=== PATIENT | male | born 1965 | race Caucasian/White ===

== ENCOUNTER 2025-02-02 09:13 | Emergency (ER) | payer MEDICAID, SELFPAY ==
--- OUTSIDE RECORDS SUMMARY | 2023-10-17 04:01 | XMS_ITS | Continuity of Care Document ---
Author Organization [facility] Address [address] [address] [place] [address] Phone Care Team Providers Care Shear Tender Name Role Phone Blaine Lombardo CRNA Unavailable Unavailab le Allergies, Adverse Reactions, Alerts Substance Reaction Status Criticality No Known Allergies Active No Inform ation Medications Medication Instructions Dosage Effective Dates (start - stop) Status Comments lisinopril 5 mg tablet take 1 tablet by oral route every day 5 MG - Active simvastatin 10 mg tablet take 1 tablet by oral route every day in the evening 10 MG - Active One A Day Men Complete 240 mcg-25 mcg-300 mcg tablet - Active tadalafil 2.5 mg tablet take 1 tablet by oral route every month 2.5 MG - Active Procedures Procedure Date Colonoscopy Flex; W/remov Les- 24 Level Iv-surg Path Gross/micro 24 Advance Directives Directive Yes / No Effective Date File Name No Information Encounters Encounter Description Practice Location Reason(s) For Visit Diagnoses Date Provider Providers Copied on Encounter [facility], [address] [address], [place], [id number], [place] tel:[phone] [facility] No Information [employer] [facility]. [address] [facility], [place], [id number], [place]. tel:[phone] Referring Provider: Phillip Vasquez MD, [address] [facility] [address], [place], [address] . tel:[phone] [facility], [address] [address], [place], [id number], [place] tel:[phone] [facility] GI Symptoms or Concerns (chief complaint) Colorectal polypsDiverticulos is of colonEncounter for screening for malignant neoplasm of colonBenign neoplasm of ascending colonBenign neoplasm of transverse colon Sep-0 4 Pedro Fisher. [address] [facility], [place], [id number], [place]. tel:[phone] Referring Provider: Jesse Landa MD, [address], [place], [address]. tel:[phone] [facility], [address] [address], [place], [id number], [place] tel:[phone] [facility] No Information 4 Justin Torres. [address] [facility], [place], [id number], [place]. tel:[phone] Family History Family Member Type Diagnosis Age At Onset Father Problem (finding) Cancer, liver Mother Problem (finding) GERD Brother Problem (finding) Alcoholism Father Problem (finding) Cancer, prostate Father Problem (finding) Cancer, skin Brother Problem (finding) Asthma Father Problem (finding) Cancer, gastric Immunizations Vaccine Date Status Comments zoster vaccine recombinant administered N ote: [facility] bi-directional interface ; Source: Other Registry SARS-COV-2 (COVID-19) vaccin e, mRNA, spike protein, LNP, preservative free, 100 mcg/0.5mL dose or 50 mcg/0.25mL dose administered Note: [facility] bi -directional interface ; Source: Other Registry zoster vaccine recombinant administered N ote: [facility] bi-directional interface ; Source: Other Registry SARS-COV-2 (COVID-19) vaccin e, mRNA, spike protein, LNP, preservative free, 100 mcg/0.5mL dose or 50 mcg/0.25mL dose administered Note: [facility] bi -directional interface ; Source: Other Registry SARS-COV-2 (COVID-19) vaccin e, mRNA, spike protein, LNP, preservative free, 100 mcg/0.5mL dose or 50 mcg/0.25mL dose administered Note: [facility] bi -directional interface ; Source: Other Registry Afluria Qd administered Note: M [facility] bi-directional interface ; Source: Other Registry Afluria Qd administered Note: M [facility] bi-directional interface ; Source: Other Registry tetanus toxoid, reduced diphtheria toxoid, and acellular pertussis vaccine, adsorbed administered Note: [facility] b i-directional interface ; Source: Other Registry diphtheria and tetanus toxoi ds, adsorbed for pediatric use administered Note: [facility] bi -directional interface ; Source: Other Registry Payers Payer name Insurance type Covered libertarian ID Authorshirlenea valeriano(s) kaylene [facility] [id number] Social History Type Description Quantity Date Captured Comments Sex Male Smoking Status No Information Chief Complaint And Reason For Visit No Information Reason For Referral Reason For Referral No Information History Of Present Illness Encounter Date Complaint History Of Prese nt Illness GI Symptoms or Concerns Functional Status Date Functional Assessmen t No Information Instructions Date Instruction Additional Infor mation Diverticulosis/Diverticulitis Re lated to Diverticulosis of colon Colon Polyps Related to Diver ticulosis of colon High Fiber Diet Related to Diver ticulosis of colon Colon Cancer Prevention Related to Diverticulosis of colon Assessments Type Assessment Date No Information Patient Care Teams Name Effective Dates (start - stop) Status Members No Information
--- OUTSIDE RECORDS SUMMARY | 2025-02-02 09:16 | XMS_ITS | Encounter Summary ---
Author Organization [facility] Address [address] [place] [address] Care Team Providers Care Flexible Nanny Name Role Phone None Reported, Pcp Primary Care Provider Unavail able Reason for Visit * ReasonCommentsMed Refill Encounter Details DateTypeDepartmentCare Team (Latest Contact Info)Bunnkuqzigi85/15/2025Refill Department of Urology in [place], [place] [address] [place] [address] Phil Huertas M.D. [address] [place] [address] Med Refill Social History Tobacco UseTypesPacks/DayYears UsedDateSmoking Tobacco: NeverPassive Smoke Exposure: PastSmokeless Tobacco: NeverAlcohol UseStandard Drinks/WeekCommentsYes 3 (1 standard drink = 0.6 oz pure alcohol)[facility] UtilitiesAnswerDate RecordedIn the past 12 months has the [employer], gas, oil, or water [employer] threatened to shut off services in your home?No04/24/2024Hunger Vital SignAnswerDate RecordedWithin the past 12 months, you worried that your food would run out before you got the money to buymore.Never true04/24/2024Within the past 12 months, the food you bought just didn't last and you didn't have money to get more.Never true 04/24/2024PRAPARE - TransportationAnswerDate RecordedIn the past 12 months, has lack of transportation kept you from medical appointments or from getting medications?No04/24/2024In the past 12 months, has lack of transportation kept you from meetings, work, or from getting things needed for daily living?No 04/24/2024Housing StabilityAnswerDate RecordedWhat is your living situation today?I have a steady place to live04/24/2024Sex and Gender InformationValueDate RecordedSex Assigned at BdjouOccq16/28/2023 11:35 AM CSTLegal HnlZxho1503/16/2016 2:15 PM CSTGender PsjqzjyqHgty90/28/2023 11:35 AM CSTSexual OrientationStraight 02/07/2023 11:35 AM CSTdocumented as of this encounter Plan of Treatment Not on file documented as of this encounter Visit Diagnoses Not on filedocumented in this encounter Care Teams Team MemberRelationshipSpecialtyStart DateEnd Date None Reported, Pcp PCP - Hpghznm45/8/24documented as of this encounter
--- OUTSIDE RECORDS SUMMARY | 2025-02-02 09:16 | XMS_ITS | Clinical Summary ---
Author Organization [facility] Address Formerly [facility], [address] [place] [address] Care Team Providers Care Solar Energy Technician Name Role Phone Jesse Landa MD Primary Care Provider Kian Hubbard MD Unavailable [phone] Phil Huertas MD Unavailable Allergies No known active allergies Medications MedicationSigDispense QuantityRefillsLast FilledStart DateEnd DateStatus multivitamin (MVI) tablet Take 1 tablet by mouth once daily.Active oxybutynin 5 mg tablet Take 5 mg by mouth once daily.5Active tadalafiL 5 mg tablet Indications:Erectile dysfunction, unspecified erectile dysfunction type,Urinary frequencyTake 1 Tablet (5 mg) by mouth once daily. 90 Tablet 5Active simvastatin 20 mg tablet Indications:Pure hypercholesterolemiaTake 1 Tablet (20 mg) by mouth once daily in the evening. 90 Tablet 5Active lisinopriL 10 mg tablet Indications:Essential hypertensionTake 1 Tablet (10 mg) by mouth once daily. 90 Tablet 5Active predniSONE (DELTASONE) 20 mg tablet Indications:Sinus congestionTake 2 tabs with food daily for 3 days, then 1 tablet for 4 days 10 Tablet 5Active Additional Information Patient not taking.Reported on 02/02/2025 ketorolac 10 mg tablet Indications:Persistent headachesTake 1 Tablet (10 mg) by mouth every 6 hours if needed for Pain for up to 5 days. Maximum of 40 mg in 24 hours. 15 Tablet 512/5Active amoxicillin-clavulanate (AUGMENTIN) 875-125 mg tablet Indications:Sinusitis, unspecified chronicity, unspecified locationTake 1 Tablet by mouth two times daily with meals for 7 days. 14 Tablet 512/11/2024Expired doxycycline 100 mg tablet Indications:Sinus congestionTake 1 Tablet (100 mg) by mouth two times daily for 7 days. 14 Tablet /Expired Active Problems ProblemNoted DateDiagnosed DateProstate zmjmgo9904/08/2023Lung lzffut6801/30/2022 Overview (01/30/2022): Last CT 07/2021. Due for follow up in 07/2022. Plantar lulpeloaa32/20/2021Family history of premature CAD12/31/2020Obesity (BMI 30.0-34.9)12/30/2020Family history of prostate rbbkjg4007/29/2019Myopia of right eye with psfmgkvogca08/08/2018Bilateral low back pain without vkxhikum02/01/2015 Skin moles10/05/2011DJD (degenerative joint disease) of hip08/15/2010Presbyopia 02/17/20083298Trsyrs46/06/2009Unspecified essential gppkngovrrex97/14/2002 HYPERCHOLESTEROLEMIA, PURE Resolved Problems ProblemNoted DateDiagnosed DateResolved DateUrinary yrrykplct96/22/2022 5BMI 32.0-32.9,[facility] bqfktjdukfg63 Overview (10/01/2013): Colonoscopy 09/2013 diverticulosis repeat in 10 years ABNORMAL FINDINGS, ELEVATED BP W/O HTN Encounters DateTypeDepartmentCare PvkyOndephaoxst62/23/2025 8:20 AM CSTOffice Visit [facility] [address] [place], [place] [id number] Amanda Vaz PA Dxezwkbq92/22/3482Uajznp22/09/2025 3:00 PM CSTOffice Visit [facility] [address] [place] [id number] Di Ware MD Sinus Problem (Sinus infection symptoms x 4 weeks - started augmentin last week with no improvement- pressure in head, headaches, pressure behind eyes, fatigue, blowing nose, mostly clear but sometimes green snot. This has happened to him in the past and he states he was in [place] and ended up in the hospital on IV antibiotics )01/18/20251981Ilehxj22/08/2025Nurse Triage [facility] [address] [place] [address] Jesse Landa MD Sinus Agocpjo3901/13/2025 3:27 PM CARDIAC TECHNICIAN - 01/13/2025 4:02 PM CSTEmergency [facility] [address] [place] [address] Selena Colindres PA Sinusitis, unspecified chronicity, unspecified location (Primary Dx) Discharge Disposition: Home Self Carefrom Last 3 Months Immunizations ImmunizationAdministration DatesNext DueCOVID-19 vaccine (Moderna 100mcg/0.5mL) MD ROBERTO CARLOSV/,1DT (Age < 7 years)04/25/1988Influenza, IIV3 (Age >=3 years)12/26/2012Influekathie, DWS112/03/2019,12/09/2018Influenza, RIV3 (Age =>9 Years)12/11/2024Td (Age >=7 Years)01/30/2022,11/18/2003Tdap10/05/2011Zoster (Shingrix-RZV, recombinant)03/15/2021,12/30/2020 Family History Medical HistoryRelationNameCommentsAlcoholismBrother 1TimCancer-prostateBrother 1TimDiabetesBrother 1TimHypertensionBrother 1TimHeart DiseaseBrother 2CABG at 53 Cancer-prostateFatherPaulDiagnosed at 81.Coronary artery diseaseFatherPaul DiabetesFatherPaulHypertensionMotherGood HealthSisterJulieObesitySisterJulie RelationNameStatusCommentsBrother 1TimAliveBrother 2AliveBrother 3AliveFather PaulDeceasedMotherAliveSisterJulieAlive Social History Tobacco UseTypesPacks/DayYears UsedDateSmoking Tobacco: NeverSmokeless Tobacco: Never Tobacco Cessation:Counseling Given: Yes Alcohol UseStandard Drinks/WeekCommentsYes0 (1 standard drink = 0.6 oz pure alcohol)socialPHQ-2AnswerDate RecordedPHQ-2 TOTAL JYYKG38503/04/2023Exercise Vital SignAnswerDate RecordedDays of Exercise per Week3 days07/29/2019Minutes of Exercise per Hzehmat23 min07/29/2019Social ConnectionsAnswerDate RecordedDo you often feel lonely or isolated from those around you?lcohol UseAnswer Date RecordedHow often do you have a drink containing alcohol?How many drinks containing alcohol do you have on a typical day when you are drinking?How often do you have five or more drinks on one occasion?0 01/19/2025Financial Resource StrainAnswerDate RecordedDifficulty of Paying Living Lseblcwc150/28/2025Difficulty of Paying Living ExpensesNot on file 06/08/2024Food InsecurityAnswerDate RecordedDo you worry your food will run out before you are able to buy more?Transportation NeedsAnswerDate RecordedDoes lack of transportation keep you from medical appointments?1 06/08/2024Does lack of transportation keep you from work, meetings or getting things that you need?Housing StabilityAnswerDate RecordedWhat is your housing situation today?UtilitiesAnswerDate RecordedDo you have trouble paying for utilities (for example, heat, electricity, water, phone)?1 06/08/2024Sex and Gender InformationValueDate RecordedSex Assigned at BirthNot on fileLegal FtzMlhj8502/25/2012 5:23 AM CSTGender IdentityNot on fileSexual OrientationNot on file Last Filed Vital Signs Vital SignReadingTime TakenCommentsBlood Jgwppena746/7202/02/2025 8:18 AM CARDIAC TECHNICIAN Ahrij760502/02/2025 8:18 AM HWCSfqzbbbmxys34.8 ??C (98.2 ??F)02/02/2025 8:18 AM CSTRespiratory Yzzy593003/22/2024 3:27 PM CSTOxygen Murednadfv43%02/02/2025 8:18 AM CSTInhaled Oxygen Concentration--Ntkmvi39.7 kg (217 lb 11.2 oz)02/02/2025 8:18 AM OIAGkxint664.8 cm (5' 10)02/02/2025 8:18 AM CSTBody Mass Index31.24 02/02/2025 8:18 AM CARDIAC TECHNICIAN Plan of Treatment Health MaintenanceDue DateLast DoneCommentsPneumococcal series for age 50+ (1 of 2 - PCV)1982COVID-19 vaccine series ( season)2024 01/23/2021, 06/01/2020, 1Depression screening for age 12+01/02/2025 01/03/2024, 01/30/2022, 12/30/2020, Additional history existsBMI (ht and wt on same day) for age 18+6104/05/2024, 01/19/2025, 06/12/2024, Additional history existsLipids for age 45-7505/, 06/12/2024, 04/08/2023, Additional history existsTetanus , 10/05/2011, 11/18/2003Colonoscopy through age 7509//06/2023, 10/01/2013RSV vaccine for adults or (1 - 1-dose 75+ series)2038Hepatitis C screening for age 18-09Bxbangrpb04/21/2014Zoster (shingles) series for age 50+Completed 03/15/2021, 12/30/2020HIV for age 15-59Sbdjwhomb42/26/2024Influenza Vaccine Ytysbgcvw61/31/2025, 12/14/2019, 12/09/2018, Additional history existsHepatitis B series for 19+Aged OutNo longer eligible based on patient's age to complete this topic Medical Devices ImplantedTypeAreaManufacturerDevice IdentifierShelf Expiration DateModel / Serial / LotCmnt Bone Surg Simplex - [id number] [facility] [facility] [employer] [id number]# / / [id number] Cup Hap Sz52/58 - [id number] Implanted:Qty: 1 on 10/27/2010 at [facility]: [employer]W [id number]# / / [id number] Fem 52mm - [id number] Implanted:Qty: 1 on 10/27/2010 at [facility]: [employer] [id number] / / [id number] Procedures Procedure NamePriorityDate/TimeAssociated DiagnosisCommentsLIPID PANEL W REFLEX MEASURED QMPDdzaovs46/02/2025 10:31 AM CDT Pure hypercholesterolemia SCAN-RPUISAOIXVD96/05/2024 10:00 AM CDT ANTI HIV /2Hskrxem05/26/2024 4:03 PM CARDIAC TECHNICIAN Screening for HIV (human immunodeficiency virus) ANTI ZZHUwsqtco61/21/2014 9:46 AM CDT Need for hepatitis C screening test from Last 3 Months or Most Recently Relevant to Health Maintenance Results * (ABNORMAL) LIPID PANEL W REFLEX MEASURED LDL (06/12/2024 10:31 AM CDT) ComponentValueRef RangeTest MethodAnalysis TimePerformed AtPathologist SignatureCHOLESTEROL, QTERD860(H)<200 mg/dLQuest Diagnostics-Applied Cell Technology DaleHDL XYKLCNILMDN57> OR = 40 mg/dLQuest Diagnostics-[employer] Technology XflhVKSCARZESFQZG51<150 mg/dLQuest Diagnostics-[employer] DaleLDL-OLXHQGARKVX443(H)mg/dL (calc)[facility] Diagnostics-Wood DaleComment: Reference range: <100 Desirable range <100 mg/dL for primary prevention; <70 mg/dL for patients with CHD or diabetic patients with > or = 2 CHD risk factors. LDL-C is now calculated using the Georges calculation, which is a validated novel method providing better accuracy than the Friedewald equation in the estimation of LDL-C. Viktor SS et al. ABIMAEL. 2013;310(19): 7514-9030 (http://education.[employer] Uretim/faq/GFH227) CHOL/HDLC RATIO3.2<5.0 (calc)Associated ContentNaval HospitalN HDL WJOUDFMHLTI791 (H)<130 mg/dL (calc)Associated ContenteComment: For patients with diabetes plus 1 major ASCVD risk factor, treating to a non-HDL-C goal of <100 mg/dL (LDL-C of <70 mg/dL) is considered a therapeutic option. Specimen (Source)Anatomical Location / LateralityCollection Method / Volume Collection TimeReceived TimeBloodBLOOD SPECIMEN / Djuhscb8206/12/2024 10:31 AM CDT 06/12/2024 10:31 AM CDT Narrative Authorizing ProviderResult TypeResult StatusLeo Milan Landa MDCHEMISTRY Final ResultPerforming OrganizationAddressCity/State/ZIP CodePhone Number [facility] [address] [place] [address], [facility] [address] [place] [address] * SCAN-COLONOSCOPY (10/17/2023 10:00 AM CDT) Narrative Procedure Note Phillip Vasquez MD - 10/17/2023 9:20 AM CDT [facility] [address] [facility] [address], [address], [place] [id number] Patient Name: Jason Gutierrez Gender: Male Exam Date: 10/17/2023 Visit Number: [id number] Age: 58 Years Date of : 1965 Attending MD: Phillip Vasquez MD Medical Record#: [id number] Procedure: Colonoscopy Indications: Colorectal cancer screening Referring MD: Jesse Landa MD Primary MD: Jesse Landa MD Medications: Admitting Medications: 0.9% Normal Saline at [facility] Intra Procedure Medications: Patient received monitored anesthesia care. Complications: No immediate complications Procedure: An examination of the heart and lungs was performed and found to be within acceptable limits. . The patient was therefore deemed a reasonablecandidate for endoscopy and sedation. The risks and benefits of the procedure were explained to the patient.After obtaining informed consent, the patient received monitoredanesthesia care and I passed the scope without difficulty via the rectum to the cecum. The appendiceal orificeand ic valve were identified. The scope was retroflexed during theexamination The quality of the prep was good (Miralax/Gatorade/2 tabletsBisacodyl/Magnesium Citrate). This was a complete examination throughout the entire colon. Findings: Polyp location: ascending colon. Quantity: 1. Size: 5 mm. Polyp shape:sessile. Maneuver: polypectomy was performed with a cold snare. Removal: complete. Retrieval: complete. Bleeding: none. Polyp location: transverse colon. Quantity: 1. Size: 4 mm. Polyp shape:sessile. Maneuver: polypectomy was performed with a cold snare. Removal: complete. Retrieval: complete. Bleeding: none. Diverticulosis. Location: - ascending colon - transverse colon -descending colon - sigmoid. Quantity: many. Remainder of the exam is normal. Impression: Colorectal polyps Diverticulosis of colon Preliminary Plan: The patient and their physician will receive a copy of the pathologyreport as well as pathology-based recommendations for future screening orsurveillance. Pathology Results: A: COLON, ASCENDING, POLYP: 1. Tubular adenoma 2. Negative for high grade dysplasia 3. Per the colonoscopy report: a. Polyp size: 5 mm b. Resection: Complete c. Retrieval: Complete B: COLON, TRANSVERSE, POLYP: 1. Tubular adenoma 2. Negative for high grade dysplasia 3. Per the colonoscopy report: a. Polyp size: 4 mm b. Resection: Complete c. Retrieval: Complete MICROSCOPIC A: Performed B: Performed Electronically signed by: Aden Evangelista MD Interpreted at [facility], [address] [place] [address] Orders Instruction(s)/Education: Instruction/Education Timeframe Assessment Colon Cancer Prevention K57.30 Colon Polyps K57.30 Diverticulosis/Diverticulitis K57.30 High Fiber Diet K57.30 Final Plan: Repeat colonoscopy in 5 years for Polyp surveillance. We will attempt to contact you at appropriate intervals via U.S. mail. Wemay not be able to find you or contact you at that time, therefore youshould know that the responsibility for following our recommendation restswith you. If you don't hear from us at the time your procedure is due,please contact our office to schedule an appointment. If your contactinformation should change, please contact our office so that we can updateyour record. _Electronically signed by: Phillip Vasquez MD 10/17/2023 cc: Jesse Landa MD cc: Jesse Landa MD Authorizing ProviderResult TypeResult StatusAacyrus Vasquez MDOTHERFinal Result * ANTI HIV 1/2 [51264.0] (04/08/2023 4:03 PM CARDIAC TECHNICIAN)ComponentValueRef RangeTest MethodAnalysis TimePerformed AtPathologist SignatureHIV-1/HIV-2 SCREEN Adb-JrpseklnSyv-Kdyfnzgz61/26/2024 10:30 PM CSTSOUTH MISSISSIPPI STATE [facility]- CENTRAL LABORATORYComment:HIV-1 p24 and HIV-1/HIV-2 Ab Not Detected.Specimen (Source)Anatomical Location / LateralityCollection Method / VolumeCollection TimeReceived TimeBloodBLOOD SPECIMEN / UnknownVenipuncture / Oiarrtu3004/08/2023 4:03 PM CST04/08/2023 4:03 PM CARDIAC TECHNICIAN Narrative Authorizing ProviderResult TypeResult StatusLemario Landa MDSEND OUTS Final ResultPerforming OrganizationAddressCity/State/ZIP CodePhone Number [facility] [address] [place] [address], [place] * ANTI HCV [44711.2] (08/31/2013 9:46 AM CDT)ComponentValueRef RangeTest Method Analysis TimePerformed AtPathologist SignatureHEPATITIS C ANTIBODYNon-Reactive Non-Mblmgxwd12/21/2014 4:04 PM CDTALMAYO [facility]IC [facility] Specimen (Source)Anatomical Location / LateralityCollection Method / Volume Collection TimeReceived TimeBlood specimen (specimen)BLOOD SPECIMEN / Unknown Venipuncture / Tosraii3708/31/2013 9:46 AM CDT08/31/2013 9:46 AM CDT Narrative [facility] - 08/31/2013 4:04 PM CDT Antibodies to HCV not detected; does not exclude the possibility of exposure to HCV. Authorizing ProviderResult TypeResult StatusLeo Milan Landa MDSEND OUTS Final ResultPerforming OrganizationAddressCity/State/ZIP CodePhone Number [facility] [address] [place] [address], from Last 3 Months or Most Recently Relevant to Health Maintenance Insurance * Guarantor: Jason Gutierrez TypeRelation to PatientDate of BirthPhone Billing [id number] [address] [place] [address] Advance Directives * Full Code (Latest Code Status on File) Date ActivatedDate InactivatedComments10/27/2010 8:12 PM10/29/2010 4:11 PM * Full Code Date ActivatedDate InactivatedComments10/27/2010 8:31 AM10/27/2010 8:12 PM Care Teams Team MemberRelationshipSpecialtyStart DateEnd Date Jesse Landa MD [address] [place] [address] PCP - GeneralFamily Practice08/31/13 Kian Hubbard MD [address] [address] Surgery - Qdgiitg77/20/22 Phil Huertas MD [address] [place] [address] Surgery - Urolog04/08/23
--- OUTSIDE RECORDS SUMMARY | 2025-02-02 09:17 | XMS_ITS | Encounter Summary ---
Author Organization [facility] Address [address] [place] [id number] Care Team Providers Care Oracle Fusion Developer Name Role Phone None Reported, Pcp Primary Care Provider Unavail able Reason for Visit * ReasonCommentsMed Refill Encounter Details DateTypeDepartmentCare Team (Latest Contact Info)Nrblennqqwe51/18/2025Refill Department of Urology in [place], [place] [address] [place] [address] Phil Huertas M.D. [address] [place] [address] Med Refill Social History Tobacco UseTypesPacks/DayYears UsedDateSmoking Tobacco: NeverPassive Smoke Exposure: PastSmokeless Tobacco: NeverAlcohol UseStandard Drinks/WeekCommentsYes 3 (1 standard drink = 0.6 oz pure alcohol)[facility] UtilitiesAnswerDate RecordedIn the past 12 months has the [employer], gas, oil, or water [employer] threatened to shut off services in your [...] live04/24/2024Sex and Gender InformationValueDate RecordedSex Assigned at HezuqHwgc62/28/2023 11:35 AM CSTLegal QvfSabp5003/16/2016 2:15 PM CSTGender RnjnuwlwJiiw00/28/2023 11:35 AM CSTSexual OrientationStraight 02/07/2023 11:35 AM CSTdocumented as of this encounter Plan of Treatment Not on file documented as of this encounter Visit Diagnoses Not on filedocumented in this encounter Care Teams Team MemberRelationshipSpecialtyStart DateEnd Date None Reported, Pcp PCP - Zfnwiog17/8/24documented as of this encounter
--- OUTSIDE RECORDS SUMMARY | 2025-02-02 09:17 | XMS_ITS | Clinical Summary ---
Author Organization [facility] Address [address] [place] [id number] Care Team Providers Care Assistant Professor Of Biology Name Role Phone None Reported, Pcp Primary Care Provider Unavail able Source Comments Patient records contain information from all sites at [facility]. For routine questions regarding patient records, call [phone] during business hours, M-F 8:00 AM - 5:00 PM Central Time. Record requests for emergency care only can be directed to [phone] at any time.[facility] Allergies No known active allergies Medications * This document contains information received from the source organization and may not represent a complete record from that organization. MedicationSigDispense QuantityRefillsLast FilledStart DateEnd DateStatus lisinopriL (PRINIVIL,ZESTRIL) 10 mg tablet Take 1 tablet by mouth daily.01/12/2010ctive multivitamin tablet Take 1 tablet by mouth daily.05/20/2018Active simvastatin (ZOCOR) 20 mg tablet 01/30/2022ctive tadalafiL (CIALIS) 5 mg tablet TAKE 1 TABLET BY MOUTH ONCE DAILY FOR 90 DAYS10/08/2021ctive tadalafiL (Cialis) 5 mg tablet Take 1 tablet (5 mg total) by mouth daily. May take an additional 3 tablets one hour prior to intimacy 90 tablet 11004/25/2023ctive acetaminophen (TYLENOL) 500 mg tablet Take 2 tablets (1,000 mg total) by mouth every 6 (six) hours as needed for pain. 04/26/2023ctive oxyCODONE (ROXICODONE) 5 mg immediate release tablet Indications:Acute PainTake 1-2 tablets (5-10 mg total) by mouth every 4 (four) hours as needed for pain. Take 1 tablet for 4-6 pain, take 2 tablets for 7-10 pain. 10 tablet 04/26/2023 2:55 PM CDT04/26/2023ctive bacitracin 500 unit/gram ointment Apply 1 Application topically 2 (two) times a day. Apply to catheter at tip of penis. 30 g 04/26/2023 2:55 PM CDT04/26/2023ctive cefdinir (OMNICEF) 300 mg capsule Take 1 capsule (300 mg total) by mouth 2 (two) times a day before breakfast and dinner. Start day before catheter removal 6 capsule 04/26/2023 2:55 PM CDT04/26/2023ctive tadalafiL (Cialis) 5 mg tablet Take 1 tablet (5 mg total) by mouth daily. May take an additional 3 tablets one hour prior to intimacy 90 tablet 1105Active oxyBUTYnin (Ditropan-XL) 5 mg 24 hr tablet TAKE 1 TABLET BY MOUTH AT BEDTIME 30 tablet 5Active oxyBUTYnin (Ditropan-XL) 5 mg 24 hr tablet TAKE 1 TABLET BY MOUTH AT BEDTIME 30 tablet Discontinued Active Problems ProblemNoted DateDiagnosed DateHypertension NOS4Pure Bpskafjsxdbpscjzciej89/14/2024rimary Malignant Neoplasm Of Rgafiwnw52/14/2024 Cancer Prostate Family Gwxowko0212/30/2022Elevated Prostate-Specific Antigen 3Dysfunction Taefdebu50/07/2022Urgency Sgifang13/07/2022Pain Low Back Cnxakie8901/11/2015rthritis Hip08/15/2010 Encounters * This document contains information received from the source organization and may not represent a complete record from that organization. DateTypeDepartmentCare DpozLnfwektmlvo14/18/2025Refill Department of Urology in [place], [place] [address] [place] [address] Phil Huertas M.D. Med Xywama2212/26/2024[facility] in [place], [place] [address] [place] [address] Phil Huertas M.D. Med Pfjncc0711/24/2024Refill Department of Urology in [place], [place] [address] [place] [address] Phil Huertas M.D. Med Refillfrom Last 3 Months Family History Medical HistoryRelationNameCommentsDiabetesBrother 1TimHyperlipidemia (high cholesterol)Brother 1TimProstate cancerBrother 1TimHyperlipidemia (high cholesterol)Brother 2DougMigrainesBrother 2DougObesityBrother 2DougAlcohol abuse Brother 3JeffAsthmaBrother 3JeffObesityBrother 3JeffArthritisFatherPaulCoronary artery diseaseFatherPaulDiabetesFatherPaulHyperlipidemia (high cholesterol) FatherPaulHypertensionFatherPaulProstate cancerFatherPaulSkin cancerFatherPaul Coronary artery diseaseMotherCarolHyperlipidemia (high cholesterol)MotherCarol HypertensionMotherCarolTransient ischemic attackMotherCarolObesitySisterJulie RelationNameStatusCommentsBrother 1TimBrother 2DougBrother 3JeffFatherPaulMother CarolSisterJulie Social History Tobacco UseTypesPacks/DayYears UsedDateSmoking Tobacco: NeverPassive Smoke Exposure: PastSmokeless Tobacco: Never Tobacco Cessation:Counseling Given: Not Answered Alcohol UseStandard Drinks/WeekCommentsYes3 (1 standard drink = 0.6 oz pure alcohol)[facility] UtilitiesAnswerDate RecordedIn the past 12 months has the [employer], [employer], oil, or water [employer] threatened to shut off services in your home?No 04/24/2024Hunger Vital SignAnswerDate RecordedWithin the past 12 months, you worried that your food would run out before you got the money to buymore.Never true04/24/2024Within the past 12 months, the food you bought just didn't last and you didn't have money to get more.Never true04/24/2024PRAPARE - TransportationAnswerDate RecordedIn the past 12 months, has lack of transportation kept you from medical appointments or from getting medications?No 04/24/2024In the past 12 months, has lack of transportation kept you from meetings, work, or from getting things needed for daily living?No04/24/2024 Housing StabilityAnswerDate RecordedWhat is your living situation today?I have a steady place to live04/24/2024Sex and Gender InformationValueDate RecordedSex Assigned at JspplBfwf36/28/2023 11:35 AM CSTLegal TbfMnxc7903/16/2016 2: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 Gender EsolbcxdSqjl41/28/2023 11:35 AM CSTSexual CzkbdaydvieAimlvdvq72/28/2023 11:35 AM 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 Last Filed Vital Signs Vital SignReadingTime TakenCommentsBlood Uorapjxf166/77004/26/2023 7:15 AM CDT Ipoaw585604/26/2023 7:15 AM UYEWnirmamaafb94.7 ??C (98.1 ??F)04/26/2023 7:11 AM CDTRespiratory Ekge875704/26/2023 7:15 AM CDTOxygen Pxzmjlcodz83%04/26/2023 7:15 AM CDTInhaled Oxygen Concentration--Wyggcf64.3 kg (212 lb 4.9 oz)04/26/2023 7:11 AM TMLQdfmlk129 cm (5' 10.08)04/26/2023 7:11 AM CDTBody Mass Index30.39 04/26/2023 7:11 AM CDT Plan of Treatment Health MaintenanceDue DateLast DoneCommentsCT Vytyvgifkybq1963Cologuard 1963FIT1963HIV Gqpfvtouu1963Hepatitis C Cmgutxgjg1963 Office Visit for Blood Pressure Check / Re-check1963Pneumococcal vaccine (50+ years) (1 of 1 - PCV)2013Depression Screening (Annual PHQ-2) 5COVID-19 Vaccine (4 - 2024- season)/, 06/01/2020, 05/04/2020Influenza Vaccine (#1)/03/2019, 12/09/2018, 12/26/2012 Creatinine Level (Kidney Function Test)/03/2024, 04/25/2023, 04/08/2023, Additional history existsPotassium Level, 04/25/2023, 04/08/2023, Additional history existsSodium Level06/12/2025 06/12/2024, 04/25/2023, 04/08/2023, Additional history existsFasting Glucose for Diabetes Zqwevhwji73, 04/25/2023, 04/08/2023, Additional history existsLipid (Cholesterol) Pknfnftfs01, 01/30/2022, 12/30/2020, Additional history existsDTaP,Tdap,and Td Vaccines (5 - Td or Tdap) , 10/05/2011, 11/18/2003, Additional history exists Fgdundsvwju92/05/203409/06/2023, 02/11/2019, 02/10/2019Colorectal Cancer Choneaaon57/05/2034Zoster FmrjmbgwGedujvkos71/02/2022, 12/30/2020IPV Vaccines Aged OutNo longer eligible based on patient's age to complete this topic Medical Devices ImplantedTypeAreaManufacturerDevice IdentifierShelf Expiration DateModel / Serial / LotClp [facility] - [id number] Implanted:Qty: 5 on 04/26/2023 by Phil Huertas M.D. at [facility] Hardware e.g. pins/screws/rodsTeleflex [id number] / / [id number] [facility] - [id number] Implanted:Qty: 3 on 04/26/2023 by Phil Huertas M.D. at [facility] Hardware e.g. pins/screws/[employer] [id number] / / Misc OtherMisc OtherLeft: Hip Procedures Procedure NamePriorityDate/TimeAssociated DiagnosisCommentsBASIC METABOLIC PANEL, S/QXjnzweo72/14/2024 9:30 AM CDT Primary Malignant Neoplasm Of Prostate (HCC) from Last 3 Months or Most Recently Relevant to Health Maintenance Results * Basic Metabolic Panel (04/25/2023 9:30 AM CDT)ComponentValueRef RangeTest MethodAnalysis TimePerformed AtPathologist SignaturePotassium, S4.73.6 - 5.2 mmol/L04/25/2023 10:30 AM CDTDTLSodium, S420670 - 145 mmol/L04/25/2023 10:30 AM CDTDTLChloride, Y78920 - 107 mmol/L04/25/2023 10:30 AM CDTDTLBicarbonate, S 2322 - 29 mmol/L04/25/2023 10:30 AM CDTDTLAnion Xir605 - 15004/25/2023 10:30 AM CDTDTLBUN (Blood Urea Nitrogen), S198 - 24 mg/dL04/25/2023 10:30 AM CDTDTL Creatinine0.890.74 - 1.35 mg/dL04/25/2023 10:30 AM CDTDTLEstimated GFR (eGFR) >90>=60 mL/min/BSA04/25/2023 10:30 AM CDTDTLComment: Estimated GFR calculated using the 2020 CKD_EPI creatinine equation. Calcium, Total, S9.38.8 - 10.2 mg/dL04/25/2023 10:30 AM CDTDTLGlucose, S7770 - 140 mg/dL04/25/2023 10:30 AM CDTDTLSpecimen (Source)Anatomical Location / LateralityCollection Method / VolumeCollection TimeReceived TimeBlood (Blood, Venous)04/25/2023 9:30 AM CDT04/25/2023 10:13 AM CDT Narrative Authorizing ProviderResult TypeResult StatusParmeg Huertas M.D.LAB BLOOD ADD-ON Final ResultPerforming OrganizationAddressCity/State/ZIP CodePhone Number [facility] [address] [place] [address], [place] DTL [facility] [place] [address] [place] [address] from Last 3 Months or Most Recently Relevant to Health Maintenance Insurance Care Teams Team MemberRelationshipSpecialtyStart DateEnd Date None Reported, Pcp PCP - Dxgyeks21/8/24
--- OUTSIDE RECORDS SUMMARY | 2025-02-02 09:17 | XMS_ITS | Data Portability ---
Author Organization [facility], [facility] Address [address] [place] [address] Care Team Providers Care Color Repairer Name Role Phone YOSHI ART Primary Care Provider Assessment No assessment recorded. Plan of Treatment Reminders Order DateSubmit DateProviderLast Modified ByOrganization DetailsLast Modified TimeDetailsAppointmentsNone recorded.LabPSA, serum or dmturh70 [facility], [address], [place], [address], [address]/07/2022 10:26:00urinalysis, oogslqfm65tfleming29 [facility], [address], [place], [address], 12/31/2022 16:35:22urinalysis, givnhvqh79tfleming29[facility], [address], [place], [address], Ph [phone] 10:44:21ReferralNone recorded.Proceduresbladder scan (PROC) npstpnib27[facility], [address], [place], [address], Ph [phone]/ 16:35:26SurgeriesNone recorded.ImagingNone recorded. Medication Ordersceftriaxone 1 gram solution for xfwevvxvx61/12/2022 [facility], [address] [place], [address], 02/07/2023 16:53:58levofloxacin 500 mg qqujmd39/sovell [facility], [address] [place], [address], 02/07/2023 16:54:01tadalafil 5 mg feiswo67/[facility] [address], [address] [place], [address], 05/11/2022 11:38:57tadalafil 5 mg nvwlnf39[facility], [address] [place], [address], 11/17/2021 11:15:23 Patient TargetsNo targets recorded. Patient Instructions Encounter Date Encounter Id Patient Instructions Last Modified By Organization Details Last Modified Time 11/17/2021 [id number] will try daily tadalafil 5mg and recheck in 2-3 months. [email or web address] Not available 11/17/2021 11:13:56 05/11/2022 [id number] refill tadalafil 5mg daily. plan rtc 6 months for PSA/MARIELLA kvsslimk69 Not available 05/11/2022 11:40:36 12/31/2022 [id number] will set up for TRuS-BX of prostate TOLU discussed. iwakjquv26 Not available 12/31/2022 16:50:45 01/21/2023 [id number] hoem with instruction sheet, call with path report when done ynykizau29 Not available 01/21/2023 09:57:23 02/07/2023 [id number] 45 minutes spent with patient and reviewing chart csovellNot waenctyco98/28/2023 17:46:10 Reason for Referral None Reported. Results Created Date Observation Date Name Description Value Unit Range Abnormal Flag Note LastModifiedBy Organization Detail LastModifiedTime 11/17/2021 11/17/2021 urinalysis, dipstick Color-Status Hart ow Not AvailableU[facility] [address], [place], [address], 58 10:31:urinalysis, dipstickClarity-StatusClearNot Available [facility] [address], [place], [address], 09 10:31:urinalysis, dipstickGlucose-StatusNegativeNot AvailableU[facility] [address], [place], [address], 38 10:31:urinalysis, dipstickBilirubin-StatusNegativeNot AvailableU[facility] [address], [place], [address], 10 10:31:urinalysis, dipstickKetones-StatusNegativeNot AvailableU[facility] [address], [place], [address], 70 10:31:urinalysis, dipstickSp Wilbur-Status1.020Not AvailableU[facility] [address], [place], [address], 78 10:31:urinalysis, dipstickpH-Status7.5Not Available [facility] [address], [place], [address], 26 10:31:urinalysis, dipstickUrobilinogen-Status0.2Not Available[facility] [address], [place], [address], 33 10:31:urinalysis, dipstickNitrates-StatusnegativeNot AvailableUa_[facility] [address], [place], [address], 24 10:31:urinalysis, dipstickBlood-StatusNegativeNot AvailableU[facility] [address], [place], [address], 55 10:31:urinalysis, dipstickLeuko-StatusNegativeNot AvailableU[facility] [address], [place], [address], 01 10:31:urinalysis, dipstickSpecimen TypeVoidedNot Available [facility] [address], [place], [address], 52 10:31:urinalysis, dipstickPerformed Juana Sosa RNNot AvailableUa_[facility]ina [address], [place], [address], 99 10:31:urinalysis, dipstickTotal Urine Tqqdhq59jvRxc AvailableU[facility] [address], [place], [address], 20 10:31:urinalysis, dipstickpH-Status7.0Not Available [facility] [address], [place], [address], 33 16:34:3811/20220211/ladder scan (PROC)Volume (in mL)0mlNot Available [facility] [address], [place], [address], Ph [phone] 16:34:3912//20220212/SA, serum or plasmaPSA4.3ng/ml0-4.0Not Available [facility] [address], [place], [address], 94 10:25:1110//ladder scan (PROC)No observation recorded.BARCODE Not Flidanuvx65/07/2022 16:36:5203//ladder scan (PROC)No observation recorded.BARCODENot Xowmmojbn61/31/2023 16:30:1412/ Ochoa JOHNSON observation recorded.mmahamudNot Gbvkvddty85/14/2023 17:24:51 Result Notes None recorded. Problems Name Problem SNOMED Code Status Onset Date Resolution Date Notes Provider Name and Address Organization Details Recorded Time Erectile dysfunction 999750060 Active 11/17/2021 Kian Hubbard MD [address] [place] [address], [address], [facility] Gnllnfe26/07/2022 10:40:06Urgent desire to ujninjq86180290Dssqny 11/17/2021Tokeanu Hubbard MD [address] [place] [address],[address], [address], [facility] Wcmdmti67/07/2022 10:40:12Family history of malignant neoplasm of pynrcwug649009533Zhtkdf87/20/2023Tokeanu Hubbard MD [address] [place] [address], [address], [facility] Ildabop97/20/2023 16:47:30Prostate specific antigen above reference ajeov946827824Nywyvz87/20/2023Kian Hubbard MD [address] [place] [address],[address], [address] [place] [address], [place] [address]03/02/2022 16:50:22 Problem Notes None recorded. Procedures Surgical History Date Name Laterality Status Provider Name and Address Organization Details Recorded Time 01/21/2023 Prostate Biopsy Procedure completedTokeanu Hubbard MD [address] [place] [address],[address], [address] [place] [address], [facility] Wddccda06/11/2023 09:56:42103/02/2022ladder Scancommissouri delta medical centerSterling Hubbard MD [address] [place] [address],[address], [address] [place] [address], [facility] Bfymuyn41/20/2023 16:34:31103/02/2022lood Draw/FORM TAMPING MACHINE OPERATOR/PSA RESULTS completedMaymuna MahH[facility] Vyzkyju71/06/2023 10:25:59005/11/2022 Bladder ScancompletSterling Hubbard MD [address] [place] [address],[address], [address] [place] [address], [facility] Oylqcbj4605/11/2022 11:26:0911/17/2021ladder ScanUmair Hubbard MD [address] [place] [address],[address], [address] [place] [address], [place] [address] 10:43:ColonoscopycompletSterling Hubbard MD [address] [place] [address],[place] [address], [place] [address] 10:41:52Orthopedic SurgerycomShara Hubbard MD [address] [place] [address],[place] [address], [place] [address] 10:41:24 Imaging Results None recorded. Procedure Notes None recorded. Medical Equipment None Reported. Allergies No known drug allergies Medications Name Sig Start Date Stop Date Status Note LastModified by Organization Details LastModified Time ceftriaxone 1 gram solution for injection Take 1 g by injection route. 02/07 completed SS RN Not Available Not Available Not Available simvastatin 20 mg tablet TAKE 1 TABLET BY MOUTH ONCE DAILY IN THE EVENING activeNot AvailableNot AvailableNot Availablelisinopril 10 mg tabletTAKE 1 TABLET BY MOUTH ONCE DAILYactiveNot AvailableNot AvailableNot Available levofloxacin 500 mg tabletTAKE 1 TABLET BY MOUTH EVERY 24 HOURS FOR 3 DAYS (START TAKING THE DAY PRIOR TO THE BIOPSY)02/07/2023ompletedNot AvailableNot AvailableNot Availabletadalafil 5 mg tabletTAKE 1 TABLET BY MOUTH ONCE DAILY FOR 90 DAYSactiveNot AvailableNot AvailableNot Available Vitals Date Recorded Body mass index (BMI) Body weight Provider Name and Address Organization Details Last Updated DateTime 05/11/2022 30 kg/m2 81787.81 g Kian Hubbard MD [address] [place] [address],[address], [address], [facility] 05/11/2022 11:25:51 Date Recorded Body height Provider Name an d Address Organization Details Last Updated DateTime 05/11/2022 177.8 cm Maymuna Fawad [facility] 05/11/2022 11:18:01 Date Recorded Body height Body mass index (BMI) Body weight Provider Name and Address Organization Details Last Updated DateTime 11/17/2021 177.8 cm 30 kg/m2 14649.81 g Kian Hubbard MD [address] [place] [address],[address], [address], [facility] 11/17/2021 10:39:44 Date Recorded Body height Body mass index (BMI) Body weight Provider Name and Address Organization Details Last Updated DateTime 12/31/2022 177.8 cm 30.8 kg/m2 85545.36 g Kian Hubbard MD [address] [place] [address],[address], [address], [facility] 12/31/2022 16:34:11 Date Recorded Body height Body mass index (BMI) Body weight Provider Name and Address Organization Details Last Updated DateTime 02/07/2023 177.8 cm 30.8 kg/m2 95890.36 g Chidi Chua MD [address] [place] [address],[address], [address], [facility] 02/07/2023 16:53:52 Social History Question Answer Notes LastModified by Organization D etails LastModified Time Tobacco Smoking Status Never Smoker Kian Hubbard MD [address], [place], [address], [facility] Caxhbpv69/07/2022 10:40:38What Is Your Level Of Caffeine Consumption?Bsvckmavipzcp00Bfhpgbghuzu not zdrkjebor47/07/2022What Was The Date Of Your Most Recent Tobacco Screening?02/07/2023sovellInformation not available 02/07/2023What Is Your Relationship Status?Qljbtixlpyybxbl49Zwpdlcoywwu not womixwmpx78/07/2022re You Sexually Active?Ezyhktsrlhv43Cvypmfwqgdu not urognpfsc61/07/2022 Sex: Unknown Functional Status Question Answer Note LastModified by Organization D etails LastModified Time Do you use any illicit or recreational drugs? No wxkmtjum49Wqqkmlyopog not dbuqmxpmf26/07/2022What is your level of alcohol consumption?Ovqbjsmqltpjeyoimc92Gwuspoiscvi not /07/2022 Mental Status None recorded. Family History Relationship Description Onset Age of this Age Resolved Age Notes LastModified by Organization Details LastModified Time Father Family history of malignant neop lasm of prostate vhvksixb15Lxw cfrqmhnxy88/07/2022 10:40:27 Medical History Condition Response High Blood Pressure Y Cancer Y High Cholesterol Y Immunizations Vaccine Type Date Status Note Provider Nam e and Address Organization Details Recorded Time zoster recombinant 03/15/2021 completed Shelley begum [facility] Sxmcsih06/06/2023 16:55:53zoster vcsscuujake57/19/2021ompleted Shelley begum [facility] Ckrkcot84/06/2023 16:55:53COVID-19, mRNA, LNP-S, PF, 100 mcg/0.5mL dose or 50 mcg/0.25mL dose05/04/2020ompleteDavid begum [facility] Kpiholo10/06/2023 16:55:53COVID-19, mRNA, LNP-S, PF, 100 mcg/0.5mL dose or 50 mcg/0.25mL dose06/01/2020ompleteDavid begum [facility] Alzjtnu29/06/2023 16:55:53COVID-19, mRNA, LNP-S, PF, 100 mcg/0.5mL dose or 50 mcg/0.25mL dose01/23/2021ompletedSharon Almejere null, [facility] Xpbonid77/06/2023 16:55:53DT (pediatric)04/25/1988completedSharon Almejere null, [facility] Hnhvnqv69/06/2023 16:55:76Axme2310/05/2011completedSharon Almejere null, [facility] Sptpqif73/06/2023 16:55:53Influenza, split virus, trivalent, kchuyjmzamgs47/15/2013completedSharon Almejere null, [facility] Dqxjqwx11/06/2023 16:55:53Td (adult), 2 Lf tetanus toxoid, preservative free, oqnwonpz21/07/2004completedSharon Almejere null, [facility] Buznqsl69/06/2023 16:55:53Influenza, split virus, quadrivalent, PF12/09/2018completedSharon Almejere null, [facility] Ateuaaz11/06/2023 16:55:53Influenza, split virus, quadrivalent, PF12/14/2019completedSharon Almejere null, [facility] Ogpzzmd45/06/2023 16:55:53Td (adult), 2 Lf tetanus toxoid, preservative free, kdtvuplf14/20/2022completedSharon Almejere null, [facility] Bqufcfr37/06/2023 16:56:00 Past Encounters Encounter ID Performer Location Encounter Start Date Encounter Closed Date Diagnosis/Indication Diagnosis SNOMED-CT Code Diagnosis ICD10 Code Diagnosis IMO Codes Diagnosis Note [id number] MD LILIA Jean_Shanika [address] [place] [address] 11/17/2021 10:23:28 11/22/2021 16:12:46 Urgent desire to urinate 28732183 R39.15 Erectile syblmhfuxwg092148821E20.21 [id number] Ricardo [address] [place] [address] 05/11/2022 11:11:41005/16/2022 14:14:02Urgent desire to jdwfkby95155650C11.15 [id number] [facility] [address] [place] [address] 12/31/2022 16:17:02103/09/2022 12:57:42Urgent desire to watrvgo13886966B88.15 Family history of malignant neoplasm of yguouacz578587384L02.42 Prostate specific antigen above reference ekomr574537502I69.20 [id number] Jeankaren [address] [place] [address] 01/21/2023 09:16: 11:52:52Prostate specific antigen above reference ckplj132215362U71.20 [id number] Samuels_Shanika [address] [place] [address] 02/07/2023 16:42:26002/17/2023 16:18:49Malignant neoplasm of ohpqbakx369048726X91 Discussed the five main treatments of prostate cancer including active surveillance, radiation therapy, robotic prostatectomy, cryotherapy and hormonal therapy. Used prostate cancer nomograms to compare outcomes and discussed side effects of treatment including, incontinence and impaired sexual health. He is leaning toward prostatectomy. Due to his schedule, he would like to have it done in April, and that is a very reasonable time frame. His cancer has been detected quite early. Health Concerns Section Related Observation LastModified by Organization Detai ls LastModified Time None Recorded Concern Status LastModified by Organization Details LastModified Time None Recorded Advance Directives Directive None Recorded Payers Insurance Date Sequence Insurance Name Policy Number Policy Ramey Covered Member ID Ramey Member ID Guarantor Name 02/17/2023 1 [facility]IO R TO 2022 (MEDICAID REPLACEMENT - HMO) [id number] Jason Gtzeau [id number] Jason Manuel [id number]/46564BEOHBS HEALTHCAREMNHCPCraig W [id number] W [id number] (PPO)[id number] [id number] [place] Notes Date Note Type Note Provider Name and Address Swathi montes Details Recorded Time 11/17/2021 text/html 6-10 months frequency and urgency. nothing seems to make better. most frequency in AMs when drinking coffee. nocturia 0-1x. no leaking but some close calls. having some trouble with ED over same timeframe. had some trouble keeping erections at times. no DM. had testo level was 413, PSA OK at PCP. (2.94 in September) Dad has metastic CaP dx age 80. UA clear and PVR 37ml today.Kian Hubbard MD [address] [place] [address],[address] [facility], [place], [address], [facility] Mshyhxs67/07/2022 11:15:46005/11/2022text/html voiding better with daily 5mg tadalafil, still with some situational urgency. needs refill on the med. nocturia 1x. bladder scan 80 ml today. voided shortly before that.Kian Hubbard MD [address] [place] [address],[address], [place], [address], [facility] Rdiifze9405/11/2022 11:46:3911text/html follow up urgency. taking tadalafil ad it is working well UA clear and PVR 0ml today. getting some urgency when drinks too much coffee. otherwise doing well had PSA with PCP earlier this year and patient says was OK. PSA today 4.3 today Margoth begum [facility] Xzqyyxl10/06/2023 10:26:text/html here for TRUS-BX or prostate todayCarolyn begum [facility] Mqlovwb01/13/2023 13:43:text/html f/u for prostate cancer.His Father just from metastatic prostate cancer.25cc glandGleason 3+4=7Sig other is a nurse. She was at the visit with him.Chidi Chua MD [address] [place] [address],[address], [place], [address], [facility] Uthlums72/28/2023 17:46:20
[2025-02-02 10:16] VITALS: BP 117/71; PULSE 50; RESP 16; TEMP 36.2; O2SAT 96; BMI 31.3
--- NOTE | 2025-02-02 10:44 | CRLHL7_ITS ---
For Patients: As a result of the Century Cures Act, medical imaging exams and procedure reports are released immediately into your electronic medical record. You may view this report before your referring provider. If you have questions, please contact your health care provider. Indication: Facial pain Technique: Helical axial sections were obtained through the facial skeleton, mandible and adjacent structures without intravenous contrast material. Data was reformatted not only in axial but also coronal planes. Comparison: Same-day CT head Findings: Near-complete opacification of the right maxillary sinus with chronic osteitis changes and small air-fluid level. Mucosal thickening throughout the ethmoid air cells and right frontal recess, as well as circumferentially throughout the left maxillary sinus. Clear mastoid air cells. No aggressive osseous erosions. No acute osseous abnormality. Unremarkable TMJs. No concerning findings in either orbit. Impression: 1. Paranasal sinus mucosal inflammatory changes with findings suspicious for acute versus acute on chronic right maxillary sinusitis. Please note that all CT scans at this facility use dose modulation, iterative reconstruction, and/or weight-based dosing when appropriate to reduce radiation dose to as low as reasonably achievable. Dictated by Carmen De La Rosa MD @ 02/02/2025 12:19:59 PM (Electronically Signed)
--- NOTE | 2025-02-02 10:44 | CRLHL7_ITS ---
For Patients: As a result of the Century Cures Act, medical imaging exams and procedure reports are released immediately into your electronic medical record. You may view this report before your referring provider. If you have questions, please contact your health care provider. Indication: Facial pain, headache for 6 weeks behind eyes and back of head, history of prostate cancer Technique: Pre and post-contrast axial CT of the head. A total of 107 mL Isovue 370IV contrast was administered. Coronal and sagittal reformats. Bone and soft tissue algorithms. Comparison: Same day CT face Findings: The ventricles and cortical sulci appear age-appropriate. No midline shift or mass effect. No acute intracranial hemorrhage or extra-axial fluid collection. [place]uston-white matter differentiation is grossly maintained. White matter attenuation is within normal limits. No abnormal enhancement identified. Intracranial vessels are unremarkable for technique. Midline structures are unremarkable. Bony calvarium appears grossly intact. There is near complete opacification of the right maxillary sinus demonstrating small air-fluid level, with multifocal ethmoid air cell opacification and mild mucosal thickening throughout the left maxillary sinus. No mastoid effusion. Unremarkable orbits. Impression: 1. Findings suspicious for acute versus acute on chronic right maxillary sinusitis. 2. No CT evidence of acute intracranial abnormality. Please note that all CT scans at this facility use dose modulation, iterative reconstruction, and/or weight-based dosing when appropriate to reduce radiation dose to as low as reasonably achievable. Dictated by Carmen De La Rosa MD @ 02/02/2025 12:17:53 PM (Electronically Signed)
[2025-02-02 11:36] LABS: Hematocrit* 44.5 % (37.0-53.0); Hemoglobin* 15.2 gm/dL (13.5-17.5); Immature Granulocytes Abs Auto 0.01 K/uL (0.00-0.30); Immature Granulocytes Pct Auto 0.2 %; Lymphocytes Absolute Auto 1.63 K/uL (0.90-2.90); Mean Corpuscular HGB Conc 34 gm/dL (32-36); Mean Corpuscular Hemoglobin 31 pg (26-34); Mean Corpuscular Volume 92 fL (80-100); RDW Coefficient of Variation % 12.5 % (11.5-15.5); Red Blood Count* 4.84 m/uL (4.30-5.90); White Blood Count* 5.33 K/uL (4.50-11.00)
[2025-02-02 11:48] LABS: Chloride* 105 mmol/L (96-114); Potassium* 4.4 mmol/L (3.6-5.1); Sodium* 136 mmol/L (135-149)
--- NOTE | 2025-02-02 11:48 | ED_ITS ---
HPI - Headache General Date Seen: 02/02/25 Chief Complaint: Headache/Migraine Stated Complaint: Persistent headaches, PCP sug MRI Time Seen by Provider: 02/02/25 10:27 Source: patient, family, RN notes reviewed and old records reviewed Mode of arrival: ambulatory Limitations: no limitations History of Present Illness HPI Narrative: Patient is a 59-year-old gentleman who presents here with a history of facial pain, headaches, for the past 6 weeks, this is been going on off and presumed to be sinusitis. Saw provider at [facility] today, who recommended that he come over to the ER for an MRI. He has been treated with a couple rounds of antibiotics, tried prednisone, which cause some other problems. Continues with Flomax. Has not seen ENT. Denies any fevers, chills, rashes associated with this. 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 Denies worsening of his headache with bending forward or Valsalva. Very healthy gentleman, does have a little bit of bladder spasm, and high blood pressure. No tick bites. Does have a history of what sounds like sinusitis and was in [place] at least a year ago, and was suggested that he was hospitalized with IV antibiotics, but he declined this intervention. Ibuprofen does seem to help the headache, although does not take it away. Denies alcohol use or drug use or any other recent travel history. Does not remember any tick bites. MD elicited complaint: headache Pertinent past history: hypertension Severity: moderate Quality & Timing: aching and throbbing Exacerbating factors: light and noise Relieving factors: NSAIDs Associated symptoms: none Treatments prior to arrival: ibuprofen Related Data Home Medications ?Medication ?Instructions ?Recorded ?Confirmed lisinopril 10 mg tablet 10 mg PO DAILY 02/02/2501/12 oxybutynin chloride 5 mg 5 mg PO QPM 02/02/25 5 tablet,extended release 24 hr simvastatin 20 mg tablet 20 mg PO QPM 02/02/25 tadalafil 5 mg tablet mg PO 02/02/25 Previous Rx's ?Medication ?Instructions ?Recorded cefuroxime axetil 500 mg tablet 500 mg PO BID 14 days #28 tabs 02/02/25 Allergies Allergy/AdvReac Type Severity Reaction Status Date / Time No Known Drug Allergies Allergy Verified 02/02/25 11:59 Review of Systems Status of ROS: Reports: 10 or more systems reviewed and unremarkable except as noted in History and below Exam Narrative: Exam Narrative: Patient is seen in room 4 with his , alert oriented x3, vital signs are excellent. Pupils equal round reactive to light his fundi appear normal extraocular muscles are normal cranial nerves 3-12 are normal TMs are normal, left-sided sinus deviation, of his septum is noted. I do not see any obvious purulence. Mild tenderness to palpation over the facial region oropharynx is normal, neck is supple no lymphadenopathy anterior posterior chains chest is good air entry bilateral with no wheezing crackles noted heart sounds are normal. Pupils equal round reactive to light there is no scleral icterus redness. Home with his chest is good air entry bilaterally no wheezing crackles noted his heart sounds are normal Const: Vital Signs, click to edit/add: Vital Signs - 24 hr 02/02/25 10:16 Temperature 97.2 F L Pulse Rate [Pulse Oximeter] 50 L Respiratory Rate 16 Blood Pressure [Ri ght Upper Arm] 117/71 Pulse Oximetry 96 Oxygen Delivery Me thod Room Air Course Course ED Course: I discussed with the patient and his , his diagnosis of sinusitis, I called ENT, Dr.O العلي, he reviewed the CT scan, and said he would get him appointment recommended that we put him on Ceftin. Jason had been on doxycycline and Augmentin previous and I think this is a reasonable course. Laboratory work looked good also. Vital Signs Vital signs: Initial Vital Signs Temperature 97.2 F L 02/02/25 10:16 Temperature Source Temporal Artery Scan 02/02/25 10:16 Pulse Rate 50 L 02/02/25 10:16 Respiratory Rate 16 02/02/25 10:16 Blood Pressure 117/71 02/02/25 10:16 Blood Pressure Mean 86 02/02/25 10:16 Blood Pressure Position Sitting 02/02/25 10:16 Pulse Oximetry 96 02/02/25 10:16 Oxygen Delivery Method Room Air 02/02/25 10:16 Vital Signs Temperature 97.2 F L 02/02/25 10:16 Pulse Rate 50 L 02/02/25 10:16 Respiratory Rate 16 02/02/25 10:16 Blood Pressure 117/71 02/02/25 10:16 Pulse Oximetry 96 02/02/25 10:16 Oxygen Delivery Method Room Air 02/02/25 10:16 Temperature 97.2 F L 02/02/25 10:16 Pulse Rate 50 L 02/02/25 10:16 Respiratory Rate 16 02/02/25 10:16 Blood Pressure 117/71 02/02/25 10:16 Pulse Oximetry 96 02/02/25 10:16 Oxygen Delivery Method Room Air 02/02/25 10:16 MDM - Headache MDM Narrative Medical decision making narrative: Life-threatening differential diagnosis include subarachnoid hemorrhage, meningitis, encephalitis, carbon monoxide poisoning, and intracerebral hemorrhage. Other differential diagnosis include but not limited to migraine, cluster headache, tension headache, MEDICAL LEGAL INVESTIGATOR vasculitis, mass lesion, temporal arteritis, click acute closed angle glaucoma, septal and trigeminal neuralgia, sinusitis, closed head injury, and stroke Medical Records Attestation: I reviewed the patient's medical records. Lab Data Attestation: I reviewed the patient's lab results. Labs: Lab Results 02/02/25 Range/Units 11:18 WBC 5.33 (4.50-11.00) K/uL RBC 4.84 (4.30-5.90) m/uL Hgb 15.2 (13.5-17.5) gm/dL Hct 44.5 (37.0-53.0) % MCV 92 (80-100) fL MCH 31 (26-34) pg MCHC 34 (32-36) gm/dL RDW Coeff of Iliana 12.5 (11.5-15.5) % Plt Count 272 (140-440) K/uL Neut % (Auto) 53.9 (42.0-72.0) % Lymph % (Auto) 30.6 (20-44) % [facility] % (Auto) 9.8 (0.0-11.0) % Eos % (Auto) 4.7 (0.0-7.0) % Baso % (Auto) 0.8 (0.0-3.0) % Neut # (Auto) 2.88 (1.7-7.0) K/uL Lymph # (Auto) 1.63 (0.90-2.90) K/uL [facility] # (Auto) 0.50 (0.00-0.90) K/UL Eos # (Auto) 0.25 (0.00-0.50) K/uL Baso # (Auto) 0.04 (0.00-0.30) K/uL Abs Immat Gran (auto) 0.01 (0.00-0.30) K/uL Imm/Tot Granulo (auto) 0.2 % Sodium 136 (135-149) mmol/L Potassium 4.4 (3.6-5.1) mmol/L Chloride 105 (96-114) mmol/L Carbon Dioxide 23 (20-32) mmol/L Anion Gap 8 (7-15) mEq/L BUN 20 (7-30) mg/dL Creatinine 0.8 (0.5-1.5) mg/dL Estimated Creat Clear 80.10 Estimated GFR 101 ml/min Glucose 89 (60-115) mg/dL Calcium 9.0 (8.4-10.6) mg/dL C-Reactive Protein < 0.5 L (0.5-1.0) mg/dL Imaging Data CT scan - head: Radiologist's impression: [place] [address] Diagnostic Imaging Report Patient: Jason Gutierrez MR#: [id number] : 1965 Acct:[id number] Loc: ED Service Date: 02/02/[address]: Ordering Physician: Zaki Jeffery M.D. Date of Service: 02/02/25 Procedure(s): CT head/brain wo/w con Accession Number(s): [id number] cc: Jesse Landa M.D.; Zaki Jeffery M.D.~ For Patients: As a result of the 21st Century Cures Act, medical imaging exams and procedure reports are released immediately into your electronic medical record. You may view this report before your referring provider. If you have questions, please contact your health care provider. Indication: Facial pain, headache for 6 weeks behind eyes and back of head, history of prostate cancer Technique: Pre and post-contrast axial CT of the head. A total of 107 mL Isovue 370IV contrast was administered. Coronal and sagittal reformats. Bone and soft tissue algorithms. Comparison: Same day CT face Findings: The ventricles and cortical sulci appear age-appropriate. No midline shift or mass effect. No acute intracranial hemorrhage or extra-axial fluid collection. [place]-white matter differentiation is grossly maintained. White matter attenuation is within normal limits. No abnormal enhancement identified. Intracranial vessels are unremarkable for technique. Midline structures are unremarkable. Bony calvarium appears grossly intact. There is near complete opacification of the right maxillary sinus demonstrating small air-fluid level, with multifocal ethmoid air cell opacification and mild mucosal thickening throughout the left maxillary sinus. No mastoid effusion. Unremarkable orbits. Impression: 1. Findings suspicious for acute versus acute on chronic right maxillary sinusitis. 2. No CT evidence of acute intracranial abnormality. Please note that all CT scans at this facility use dose modulation, iterative reconstruction, and/or weight-based dosing when appropriate to reduce radiation dose to as low as reasonably achievable. Dictated by Carmen De La Rosa MD @ 02/02/2025 12:17:53 [place] [address] Diagnostic Imaging Report Patient: Jason Gutierrez MR#: [id number] : 1965 Acct:[id number] Loc: ED Service Date: 02/02/[address]: Ordering Physician: Zaki Jeffery M.D. Date of Service: 02/02/25 Procedure(s): CT facial bones wo con Accession Number(s): [id number] cc: Jesse Landa M.D.; Zaki Jeffery M.D.~ For Patients: As a result of the Cures Act, medical imaging exams and procedure reports are released immediately into your electronic medical record. You may view this report before your referring provider. If you have questions, please contact your health care provider. Indication: Facial pain Technique: Helical axial sections were obtained through the facial skeleton, mandible and adjacent structures without intravenous contrast material. Data was reformatted not only in axial but also coronal planes. Comparison: Same-day CT head Findings: Near-complete opacification of the right maxillary sinus with chronic osteitis changes and small air-fluid level. Mucosal thickening throughout the ethmoid air cells and right frontal recess, as well as circumferentially throughout the left maxillary sinus. Clear mastoid air cells. No aggressive osseous erosions. No acute osseous abnormality. Unremarkable TMJs. No concerning findings in either orbit. Impression: 1. Paranasal sinus mucosal inflammatory changes with findings suspicious for acute versus acute on chronic right maxillary sinusitis. Please note that all CT scans at this facility use dose modulation, iterative reconstruction, and/or weight-based dosing when appropriate to reduce radiation dose to as low as reasonably achievable. Dictated by Carmen De La Rosa MD @ 02/02/2025 12:19:59 PM (Electronically Signed)(Electronically Jennifer Discharge Plan Discharge Clinical Impression: Headache, Sinusitis Patient Disposition: Home w/ Parent or Adult Condition: Stable Instructions: Sinusitis (ED), Tension Headache (ED), Rhinosinusitis (DC), Acute Headache (ED), Nasal Endoscopy (DC) Additional Instructions: Home rest antibiotics as I directed, ENT will reach out to you for an appointment 1st week in February. Restart the flonase 1 squirt per nostril twice a day. Be careful with the Tylenol ibuprofen as a can cause rebound headaches, I myself like 600 mg of ibuprofen 3 times a day. Happy holidays Activity Level: Light activity Discharge Diet: Regular Prescriptions: New cefuroxime axetil 500 mg tablet 500 mg PO BID 14 Days Qty: 28 1RF No Action simvastatin 20 mg tablet 20 mg PO QPM lisinopril 10 mg tablet 10 mg PO DAILY oxybutynin chloride 5 mg tablet extended release 24hr 5 mg PO QPM tadalafil 5 mg tablet PO Follow Up/Referrals: Jesse Landa [Primary Care Provider, Family Practice] Stand Alone Forms: MyHealth Info Instructions
[2025-02-02 11:52] LABS: Anion Gap 8 mEq/L (7-15); Blood Urea Nitrogen* 20 mg/dL (7-30); Calcium* 9.0 mg/dL (8.4-10.6); Carbon Dioxide* 23 mmol/L (20-32); Creatinine* 0.8 mg/dL (0.5-1.5); Est. Creatinine Clearance* 80.10; Estimated Glomerular Filt Rate 101 ml/min; Glucose* 89 mg/dL (60-115)
[2025-02-02 12:00] LABS: Slide Review Reflex No
== END 2025-02-02 13:34 | disposition home or self-care (01) ==
PROVIDERS: Emergency Provider Family Medicine; PCP Family Medicine
DX: R51.9 Headache, unspecified (principal); J01.00 Acute maxillary sinusitis, unspecified; I10 Essential (primary) hypertension; Z85.46 Personal history of malignant neoplasm of prostate
CPT/HCPCS: 36415; 70470; 70486; 80048; 85025; 86140; 96360; 99284; 99285; Q9967